=== PATIENT | male | born 1945 | race Caucasian/White ===

== ENCOUNTER 2020-11-16 09:04 | Day surgery (SDC) | payer MEDICARE, OTHER ==
[~2020-11-16] VITALS: Ht 182.9 cm; Wt 84.1 kg
[2020-11-16] MEDS ORDERED: FLUD0.1T PO (10:00)
[2020-11-16] MEDS ORDERED: ATOR10TA9 PO (10:00)
[2020-11-16] MEDS ORDERED: ASPI81TA45 PO (10:00)
[2020-11-16] MEDS ORDERED: TIMO5DRO28 OP (10:00)
[2020-11-16] MEDS ORDERED: AMIT50TA PO (10:00)
[2020-11-16] MEDS ORDERED: OMEP-110 PO (10:00)
[2020-11-16] MEDS ORDERED: DIPHENHYDRAMINE 50 MG/ML, 1ML IVPush ONE (10:00)
[2020-11-16] MEDS ORDERED: DIPHENHYDRAMINE 50 MG/ML, 1ML ONE (10:27)
[2020-11-16] MEDS ORDERED: LIDOCAINE 1%, 20ML ONE (12:24)
[2020-11-16] MEDS ORDERED: FENTANYL PF 100 MCG/2ML ONE (12:25)
[2020-11-16] MEDS ORDERED: MIDAZOLAM 1 MG/ML, 2ML ONE (12:25)
== END 2020-11-16 16:29 | disposition home or self-care (01) ==
LOC: CACL 09:04
PROVIDERS: ATTEND Internal Medicine Cardiovascular Disease
DX: I27.9 Pulmonary heart disease, unspecified (principal); E78.2 Mixed hyperlipidemia; Z79.899 Other long term (current) drug therapy
CPT/HCPCS: 36415; 82330; 82803; 82947; 84132; 84295; 85014; 93451; 99156; 99157; C1769; C1894; J1200; J2250; J3010